=== PATIENT | female | born 1980 | race Caucasian/White ===

== ENCOUNTER 2021-05-27 00:50 | Observation (INO) | payer BC ==
[2021-05-27] MEDS ORDERED: BUTALB/ACETAMINOPHEN/CAFFEINE TAB PO ONE (01:24)
[2021-05-27] MEDS ORDERED: ONDANSETRON 4 MG/2 ML INJ IV ONE (01:25)
[2021-05-27 01:33] LABS: Hematocrit 44.2 % (30.3-42.9); Mean Corpuscular HGB Conc 34 % (30-34); Mean Corpuscular Volume 85 fl (79-97); Platelet Count 231 K/mm3 (140-440); Red Blood Count 5.21 M/mm3 (3.65-5.03); Red Cell Distribution Width 13.6 % (13.2-15.2)
[2021-05-27 01:43] LABS: INR 0.9 (0.87-1.13)
--- NOTE | 2021-05-27 01:44 | Emergency Department Report ---
HPI - General Time Seen by Provider: 05/27/21 01:09 - [facility] HPI: Room 24 The patient is a 40-year-old female present with a chief complaint of headache. The patient states she has had an intermittent frontal headache for the past 2 weeks this morning the patient had episode of nausea vomiting then tonight developed some shortness of breath prompted her to come to the emergency department. Patient states she went to her primary physician 5 days ago and had blood work done. The patient states she was told her glucose and cholesterol is elevated and she was given ibuprofen for her headache. Patient denies any preceding trauma, history of cough or fever. Patient denies chest pain. The patient states she has been vaccinated against Covid receiving her second Pfizer vaccine approximately 2 months ago ED Past Medical Hx - Past Medical History Previous Medical History?: No - Surgical History Past Surgical History?: No - Family History Family history: no significant - Social History Smoking Status: Never Smoker Substance Use Type: None ED Review of Systems ROS: Stated complaint: SOB HEADACHE VOMITING Other details as noted in HPI Constitutional: denies: fever Eyes: denies: eye pain ENT: denies: throat pain Respiratory: shortness of breath. denies: cough Cardiovascular: denies: chest pain Endocrine: no symptoms reported Gastrointestinal: nausea, vomiting Genitourinary: denies: dysuria Musculoskeletal: denies: back pain Neurological: headache Physical Exam - Physical Exam Physical Exam: GENERAL: The patient is well-developed well-nourished female lying on stretcher appearing to be in moderate discomfort. [] HEENT: Normocephalic. Atraumatic. Extraocular motions are intact. Patient has moist mucous membranes. NECK: Supple. No meningitic signs are noted. There is no nuchal rigidity CHEST/LUNGS: Clear to auscultation. There is no respiratory distress noted. HEART/CARDIOVASCULAR: Regular. There is no tachycardia. There is no gallop rub or murmur. ABDOMEN: Abdomen is soft, nontender. Patient has normal bowel sounds. There is no abdominal distention. SKIN: There is no rash. There is no edema. There is no diaphoresis. NEURO: The patient is awake, alert, and oriented. The patient is cooperative. The patient has no focal neurologic deficits. The patient has normal speech. Cranial nerves II through XII grossly intact. GCS 15 MUSCULOSKELETAL: There is no evidence of acute injury. - Lumbar Puncture Consent Obtained: verbal consent Time Out Performed: Yes Indication for Procedure: headache Patient Position: Sitting Upright/Leaning F Skin Prep: Povidone-Iodine 1% Local Anesthetic Used: Lidocaine 1% Amount of anesthesia used (mls): 5 Spinal Needle Gauge: 20G Spinal Needle Length: 3.5in Interspace Used: L4-L5 Fluid Initially Obtained: clear Complications: none Patient Tolerated Procedure: well, no complications ED Medical Decision Making - Lab Data Result diagrams: 05/27/21 01:15 05/27/21 01:15 Laboratory Tests 05/27/21 05/27/21 05/27/21 01:11 01:15 01:15 WBC 25.1 H RBC 5.21 H Hgb 15.0 H Hct 44.2 H MCV 85 MCH 29 MCHC 34 RDW 13.6 Plt Count 231 Add Manual Diff Complete Total Counted 100 Seg Neuts % (Manual) 76.0 H Lymphocytes % (Manual) 23.0 Eosinophils % (Manual) 1.0 Nucleated RBC % Not Reportable Seg Neutrophils # Man 19.1 H Band Neutrophils # 0.0 Lymphocytes # (Manual) 5.8 H Abs React Lymphs (Man) 0.0 Monocytes # (Manual) 0.0 Eosinophils # (Manual) 0.3 Basophils # (Manual) 0.0 Metamyelocytes # 0.0 Myelocytes # 0.0 Promyelocytes # 0.0 Blast Cells # 0.0 WBC Morphology Not Reportable Hypersegmented Neuts Not Reportable Hyposegmented Neuts Not Reportable Hypogranular Neuts Not Reportable Smudge Cells Not Reportable Toxic Granulation Not Reportable Toxic Vacuolation Not Reportable Dohle Bodies Not Reportable Pelger-Huet Anomaly Not Reportable Sanjeev Rods Not Reportable Platelet Estimate Consistent w auto Clumped Platelets Not Reportable Plt Clumps, EDTA Not Reportable Large Platelets Not Reportable Giant Platelets Not Reportable Platelet Satelliting Not Reportable Plt Morphology Comment Not Reportable RBC Morphology Normal Dimorphic RBCs Not Reportable Polychromasia Not Reportable Hypochromasia Not Reportable Poikilocytosis Not Reportable Anisocytosis Not Reportable Microcytosis Not Reportable Macrocytosis Not Reportable Spherocytes Not Reportable Pappenheimer Bodies Not Reportable Sickle Cells Not Reportable Target Cells Not Reportable Tear Drop Cells Not Reportable Ovalocytes Not Reportable Helmet Cells Not Reportable [place] Bodies Not Reportable [place] Rings Not Reportable Lanie Cells Not Reportable Bite Cells Not Reportable Crenated Cell Not Reportable Elliptocytes Not Reportable Acanthocytes (Spur) Not Reportable Rouleaux Not Reportable Hemoglobin C Crystals Not Reportable Schistocytes Not Reportable Malaria parasites Not Reportable Rober Bodies Not Reportable Hem Pathologist Commnt No PT 12.8 INR 0.90 Sodium Potassium Chloride Carbon Dioxide Anion Gap BUN Creatinine Estimated GFR BUN/Creatinine Ratio Glucose POC Glucose 164 H Calcium Total Bilirubin AST ALT Alkaline Phosphatase Total Creatine Kinase CK-MB (CK-2) CK-MB (CK-2) Rel Index Troponin T NT-Pro-B Natriuret Pep Total Protein Albumin Albumin/Globulin Ratio Lipase Urine Color Urine Turbidity Urine pH Ur Specific [place] Urine Protein Urine Glucose (UA) Urine Ketones Urine Blood Urine Nitrite Urine Bilirubin Urine Ictotest Urine Urobilinogen Ur Leukocyte Esterase Urine WBC (Auto) Urine RBC (Auto) U Epithel Cells (Auto) Urine Mucus CSF Appearance CSF Color CSF WBC CSF RBC CSF Glucose CSF Total Protein 05/27/21 05/27/21 05/27/21 01:15 02:34 03:38 WBC RBC Hgb Hct MCV MCH MCHC RDW Plt Count Add Manual Diff Total Counted Seg Neuts % (Manual) Lymphocytes % (Manual) Eosinophils % (Manual) Nucleated RBC % Seg Neutrophils # Man Band Neutrophils # Lymphocytes # (Manual) Abs React Lymphs (Man) Monocytes # (Manual) Eosinophils # (Manual) Basophils # (Manual) Metamyelocytes # Myelocytes # Promyelocytes # Blast Cells # WBC Morphology Hypersegmented Neuts Hyposegmented Neuts Hypogranular Neuts Smudge Cells Toxic Granulation Toxic Vacuolation Dohle Bodies Pelger-Huet Anomaly Sanjeev Rods Platelet Estimate Clumped Platelets Plt Clumps, EDTA Large Platelets Giant Platelets Platelet Satelliting Plt Morphology Comment RBC Morphology Dimorphic RBCs Polychromasia Hypochromasia Poikilocytosis Anisocytosis Microcytosis Macrocytosis Spherocytes Pappenheimer Bodies Sickle Cells Target Cells Tear Drop Cells Ovalocytes Helmet Cells [place] Bodies [place] Coin Cells Bite Cells Crenated Cell Elliptocytes Acanthocytes (Spur) Rouleaux Hemoglobin C Crystals Schistocytes Malaria parasites Rober Bodies Hem Pathologist Commnt PT INR Sodium 137 Potassium 4.2 Chloride 100.8 Carbon Dioxide 21 L Anion Gap 19 BUN 17 Creatinine 0.9 Estimated GFR > 60 BUN/Creatinine Ratio 19 Glucose 169 H POC Glucose Calcium 9.7 Total Bilirubin 0.40 AST 29 ALT 41 Alkaline Phosphatase 63 Total Creatine Kinase 79 CK-MB (CK-2) 1.3 CK-MB (CK-2) Rel Index 1.6 Troponin T < 0.010 NT-Pro-B Natriuret Pep 77.34 Total Protein 6.9 Albumin 4.0 Albumin/Globulin Ratio 1.4 Lipase 34 Urine Color Helen Urine Turbidity Cloudy Urine pH 5.0 Ur Specific [place] 1.020 Urine Protein >500 Urine Glucose (UA) 150 Urine Ketones Neg Urine Blood Neg Urine Nitrite Neg Urine Bilirubin Sm Urine Ictotest Negative Urine Urobilinogen 2.0 Ur Leukocyte Esterase Neg Urine WBC (Auto) 11.0 H Urine RBC (Auto) 3.0 U Epithel Cells (Auto) 9.0 Urine Mucus 3+ CSF Appearance Clear CSF Color Colorless CSF WBC 3.3 CSF RBC 146.3 CSF Glucose 69 CSF Total Protein 34 05/27/21 03:38 WBC RBC Hgb Hct MCV MCH MCHC RDW Plt Count Add Manual Diff Total Counted Seg Neuts % (Manual) Lymphocytes % (Manual) Eosinophils % (Manual) Nucleated RBC % Seg Neutrophils # Man Band Neutrophils # Lymphocytes # (Manual) Abs React Lymphs (Man) Monocytes # (Manual) Eosinophils # (Manual) Basophils # (Manual) Metamyelocytes # Myelocytes # Promyelocytes # Blast Cells # WBC Morphology Hypersegmented Neuts Hyposegmented Neuts Hypogranular Neuts Smudge Cells Toxic Granulation Toxic Vacuolation Dohle Bodies Pelger-Huet Anomaly Sanjeev Rods Platelet Estimate Clumped Platelets Plt Clumps, EDTA Large Platelets Giant Platelets Platelet Satelliting Plt Morphology Comment RBC Morphology Dimorphic RBCs Polychromasia Hypochromasia Poikilocytosis Anisocytosis Microcytosis Macrocytosis Spherocytes Pappenheimer Bodies Sickle Cells Target Cells Tear Drop Cells Ovalocytes Helmet Cells [place] Bodies [place] Coin Cells Bite Cells Crenated Cell Elliptocytes Acanthocytes (Spur) Rouleaux Hemoglobin C Crystals Schistocytes Malaria parasites Rober Bodies Hem Pathologist Commnt PT INR Sodium Potassium Chloride Carbon Dioxide Anion Gap BUN Creatinine Estimated GFR BUN/Creatinine Ratio Glucose POC Glucose Calcium Total Bilirubin AST ALT Alkaline Phosphatase Total Creatine Kinase CK-MB (CK-2) CK-MB (CK-2) Rel Index Troponin T NT-Pro-B Natriuret Pep Total Protein Albumin Albumin/Globulin Ratio Lipase Urine Color Urine Turbidity Urine pH Ur Specific [place] Urine Protein Urine Glucose (UA) Urine Ketones Urine Blood Urine Nitrite Urine Bilirubin Urine Ictotest Urine Urobilinogen Ur Leukocyte Esterase Urine WBC (Auto) Urine RBC (Auto) U Epithel Cells (Auto) Urine Mucus CSF Appearance Clear CSF Color Colorless CSF WBC 1.1 CSF RBC 30.8 CSF Glucose CSF Total Protein - EKG Data -: EKG Interpreted by Me EKG shows normal: sinus rhythm Rate: normal - EKG Data When compared to previous EKG there are: previous EKG unavailable Interpretation: nonspecific ST-T wave mattie (T wave inversion lead V2) - Radiology Data Radiology results: report reviewed (CT head, chest x-ray), image reviewed (CT head, chest x-ray) interpreted by me: Chest x-ray-no definite focal infiltrates, no pneumothorax [facility] [address] [place] [address] Cat Scan Report Signed Patient: FABRIZIO MORENO MR#: [id number] : 1980 Acct:[id number] Age/Sex: 40 / F ADM Date: 05/27/21 Loc: ED Attending Dr: Ordering Physician: MIKE HA MD Date of Service: 05/27/21 Procedure(s): CT head/brain wo con Accession Number(s): [id number] cc: MIKE HA MD CT HEAD WITHOUT CONTRAST INDICATION / CLINICAL INFORMATION: Patient complains of a headache. TECHNIQUE: All CT scans at this location are performed using CT dose reduction for ALARA by means of automated exposure control. COMPARISON: None available. FINDINGS: HEMORRHAGE: None. EXTRA-AXIAL SPACES: Normal in size and morphology for the patient's age. VENTRICULAR SYSTEM: Normal in size and morphology for the patient's age. CEREBRAL PARENCHYMA: No significant abnormality. No acute territorial infarct. MIDLINE SHIFT OR HERNIATION: None. CEREBELLUM / BRAINSTEM: No significant abnormality. ORBITS: Normal as visualized. SOFT TISSUES of HEAD: No significant abnormality. CALVARIUM: No significant abnormality. PARANASAL SINUSES / MASTOID AIR CELLS: Normal as visualized. ADDITIONAL FINDINGS: None. IMPRESSION: 1. No acute intracranial abnormality. Signer Name: Michael Patterson MD Signed: 05/27/2021 2:09 AM Workstation Name: [id number] Transcribed By: TL Dictated By: Michael Patterson MD Electronically Authenticated By: Michael Patterson MD Signed Date/Time: 05/27/21208 DD/ 7 TD/TT: Print Cancel [facility] [address] [place] [address] XRay Report Signed Patient: FABRIZIO MORENO MR#: [id number] : 1980 Acct:[id number] Age/Sex: 40 / F ADM Date: 05/27/21 Loc: ED Attending Dr: Ordering Physician: MIKE HA MD Date of Service: 05/27/21 Procedure(s): XR chest 1V ap Accession Number(s): [id number] cc: MIKE HA MD Fluoro Time In Minutes: CHEST 1 VIEW 05/27/2021 1:51 AM INDICATION / CLINICAL INFORMATION: Shortness of breath. COMPARISON: None available. FINDINGS: SUPPORT DEVICES: None . HEART / MEDIASTINUM: No significant abnormality. LUNGS / PLEURA: No significant pulmonary or pleural abnormality. No pneumothorax. ADDITIONAL FINDINGS: No significant additional findings. IMPRESSION: 1. No acute findings. Signer Name: Michael Patterson MD Signed: 05/27/2021 2:09 AM Workstation Name: [id number] Transcribed By: TL Dictated By: Michael Patterson MD Electronically Authenticated By: Michael Patterson MD Signed Date/Time: 05/27/21208 DD/ 8 TD/TT: Print Cancel - Differential Diagnosis ICH, intracranial mass, meningitis, URI, Critical care attestation.: If time is entered above; I have spent that time in minutes in the direct care of this critically ill patient, excluding procedure time. ED Disposition Clinical Impression: Headache, Leukocytosis, Orthostasis Disposition: ADMITTED INPATIENT Is pt being admited?: Yes Does the pt Need Aspirin: No Condition: Fair Referrals: PRIMARY CARE, [Primary Care Provider] - 3-5 Days Time of Disposition: 06:00 (Hospitalist called (Dr Herrera))
[2021-05-27 01:57] LABS: Creatine Kinase MB 1.3 ng/mL (0.0-4.0)
[2021-05-27 01:58] LABS: Alanine Aminotransferase 41 units/L (7-56); BUN/Creatinine Ratio 19; Blood Urea Nitrogen 17 mg/dL (7-17); Calcium 9.7 mg/dL (8.4-10.2); Hemolysis Index 8
--- NOTE | 2021-05-27 02:13 | Cat Scan Report ---
CT HEAD WITHOUT CONTRAST INDICATION / CLINICAL INFORMATION: Patient complains of a headache. TECHNIQUE: All CT scans at this location are performed using CT dose reduction for ALARA by means of automated e xposure control. COMPARISON: None available. FINDINGS: HEMORRHAGE: None. EXTRA-AXIAL SPACES: Normal in size and morphology for the patient's age. VENTRICULAR SYSTEM: Normal in size and morphology for the patient's age. CEREBRAL PARENCHYMA: No significant abnormality. No acute territorial infarct. MIDLINE SHIFT OR HERNIATION: None. CEREBELLUM / BRAINSTEM: No significant abnormality. ORBITS: Normal as visualized. SOFT TISSUES of HEAD: No significant abnormality. CALVARIUM: No significant abnormality. PARANASAL SINUSES / MASTOID AIR CELLS: Normal as visualized. ADDITIONAL FINDINGS: None. IMPRESSION: 1. No acute intracranial abnormality. Signer Name: Michael Patterson MD Signed: 05/27/2021 2:09 AM Workstation Name: [id number]
--- NOTE | 2021-05-27 02:14 | XRay Report ---
CHEST 1 VIEW 05/27/2021 1:51 AM INDICATION / CLINICAL INFORMATION: Shortness of breath. COMPARISON: None available. FINDINGS: SUPPORT DEVICES: None. HEART / MEDIASTINUM: No significant abnormality. LUNGS / PLEURA: No significant pulmonary or pleural abnormality. No pneumothorax. ADDITIONAL FINDINGS: No significant additional findings. IMPRESSION: 1. No acute findings. Signer Name: Michael Patterson MD Signed: 05/27/2021 2:09 AM Workstation Name: [id number]
[2021-05-27 03:09] LABS: Bilirubin,Urine SM (Negative); Blood,Urine NEG (Negative); Color,Urine Amber (Yellow); Mucus,Urine 3+ /HPF
[2021-05-27 03:10] LABS: Protein,Urine >500 mg/dL (Negative)
[2021-05-27 03:13] LABS: Ictotest,Urine Negative (Negative)
[2021-05-27 03:56] LABS: Platelet Estimate Consistent w Auto; RBC Morphology Normal; Total Cells Counted 100
[2021-05-27 04:06] LABS: Appearance,CSF Clear
[2021-05-27 04:07] LABS: Glucose,CSF 69 mg/dL
[2021-05-27 04:48] LABS: Red Blood Cell,CSF 30.8 /mm3 (0-0); White Blood Cell,CSF 1.1 /mm3 (1-10)
[2021-05-27 04:49] LABS: Appearance,CSF Clear
[2021-05-27 04:50] LABS: Red Blood Cell,CSF 146.3 /mm3 (0-0); White Blood Cell,CSF 3.3 /mm3 (1-10)
[2021-05-27] MEDS ORDERED: SODIUM CHLORIDE 0.9% 1000 ML 1,000 ML IV ONE ×2 (05:42)
[2021-05-27] MEDS: HEPARIN 5,000 UNIT/1 ML VIAL SUB-Q SCH ×3 (07:00→21:35)
[2021-05-27 07:02] LABS: Total Cells Counted 13 /mm3
[2021-05-27 07:22] LABS: Total Cells Counted 100 /mm3
--- NOTE | 2021-05-27 10:44 | Electrocardiograph Report ---
[facility] Test Date: 2021-05-27 Test Time: 01:15:50 Pat Name: FABRIZIO MORENO Department: Room: [place] [address] Gender: F Doctor Chiropractic: KALI : 1980 Requested By: MIKE HA Order Number: [id number] Reading MD: Chase Cantor Measurements Intervals [employer] Rate: 65 P: 10 AK: 167 QRS: 32 QRSD: 89 T: 30 QT: 430 QTc: 448 Interpretive Statements Sinus rhythm [id number] No previous ECG available for comparison Electronically Signed On 05-27-2021 10:44:28 EDT by Chase Cantor
--- NOTE | 2021-05-27 10:54 | History and Physical Report ---
History of Present Illness Date of examination: 05/27/21 Date of admission: 05/27/21 06:02 Chief complaint: headache History of present illness: The patient is a 40-year-old female without any underlying past medical history present to hospital with a chief complaint of headache. The patient states she has had an intermittent frontal headache for the past 2 weeks. She went to her primary care physician office and was told her blood glucose and cholesterol level was elevated. She also developed episode of nausea vomiting, some shortness of breath prompted her to come to the emergency department. The patient states she has been vaccinated against Covid receiving her second Pfizer vaccine approximately 2 months ago. In the ER CT head showed no acute process, patient also noted to have elevated white count and + protein in the urine. Patient was suspected for COVID-19 infection and admitted for further evaluation and management. - Past Medical History Previous Medical History?: No - Surgical History Past Surgical History?: No - Family History Family history: no significant - Social History Smoking Status: Never Smoker Substance Use Type: None Review of Systems Constitutional: denies: fever Eyes: denies: eye pain ENT: denies: throat pain Respiratory: shortness of breath. denies: cough Cardiovascular: denies: chest pain Endocrine: no symptoms reported Gastrointestinal: + nausea, vomiting Genitourinary: denies: dysuria Musculoskeletal: denies: back pain Neurological: headache Medications and Allergies Allergies Allergy/AdvReac Type Severity Reaction Status Date / Time Penicillins AdvReac Shortness Verified 05/27/21 08:26 of Breath and rash Home Medications Medication Instructions Recorded Confirmed Last Taken Type Etonogestrel/Ethinyl Estradiol 1 each VG Q28D 05/27/21 05/27/21 Unknown History [Nuvaring Vaginal Ring] Omeprazole 20 mg PO QDAY 05/27/21 05/27/21 05/26/21 History Exam - Physical Exam Narrative exam: GENERAL: well-developed and well-nourished obese female lying on bed appeared to be in no discomfort. HEENT: Normocephalic. Atraumatic. No conjunctival congestion or icterus. Patient has moist mucous membranes. NECK: Supple. Trachea midline. CHEST/LUNGS: Clear to auscultated bilaterally, breathing nonlabored. No wheezes crackles or rhonchi. HEART/CARDIOVASCULAR: Regular in rate and rhythm. S1 and S2 positive. ABDOMEN: Abdomen is soft, nontender. Patient has normal bowel sounds. SKIN: There is no rash. Warm and dry. NEURO: No focal motor deficit. Follows command. MUSCULOSKELETAL: No joint effusion or tenderness. EXTRIMITY: No edema, no cyanosis or clubbing. PSYCH: Cooperative. - Constitutional Vitals: Temp Pulse Resp BP Pulse Ox 98.7 F 69 20 112/68 98 05/27/21 00:51 05/27/21 05:02 05/27/21 02:30 05/27/21 07:31 05/27/21 07:31 HEART Score - HEART Score Troponin: Troponin T < 0.010 ng/mL (0.00-0.029) 05/27/21 01:15 Results - Labs CBC & Chem 7: 05/28/21 14:00 05/28/21 05:10 Labs: Abnormal lab results 05/27/21 05/27/21 05/27/21 Range/Units 01:11 01:15 01:15 WBC 25.1 H (4.5-11.0) K/mm3 RBC 5.21 H (3.65-5.03) M/mm3 Hgb 15.0 H (10.1-14.3) gm/dl Hct 44.2 H (30.3-42.9) % Seg Neuts % (Manual) 76.0 H (40.0-70.0) % Seg Neutrophils # Man 19.1 H (1.8-7.7) K/mm3 Lymphocytes # (Manual) 5.8 H (1.2-5.4) K/mm3 Carbon Dioxide 21 L (22-30) mmol/L Glucose 169 H (65-100) mg/dL POC Glucose 164 H (70-105) mg/dL Lactic Acid (0.7-2.0) mmol/L Urine WBC (Auto) (0.0-6.0) /HPF 05/27/21 05/27/21 Range/Units 02:34 05:55 WBC (4.5-11.0) K/mm3 RBC (3.65-5.03) M/mm3 Hgb (10.1-14.3) gm/dl Hct (30.3-42.9) % Seg Neuts % (Manual) (40.0-70.0) % Seg Neutrophils # Man (1.8-7.7) K/mm3 Lymphocytes # (Manual) (1.2-5.4) K/mm3 Carbon Dioxide (22-30) mmol/L Glucose (65-100) mg/dL POC Glucose (70-105) mg/dL Lactic Acid 2.30 H* (0.7-2.0) mmol/L Urine WBC (Auto) 11.0 H (0.0-6.0) /HPF - Imaging and Cardiology Chest x-ray: report reviewed CT Scan - head: report reviewed Assessment and Plan Frontal headache Leukocytosis Proteinuria Nausea vomiting COVID-19 PUI --Ad[facility] to [facility] --Order blood culture, placed on empiric antibiotics --Lumbar puncture suggested no CSF infectious etiology --CT head without any acute findings --We will repeat CBC tomorrow morning, will consult ID --As needed antiemetics, advance diet as tolerated --Ordered for Covid test --Monitor fever curve, consult nephrology for proteinuria
[2021-05-27] MEDS ORDERED: ALBUTEROL 8.5 GM MDI INHALATION IH PRN (10:56)
[2021-05-27] MEDS ORDERED: hydrALAZINE 20 MG/1 ML INJ IV PRN (12:00)
[2021-05-27] MEDS ORDERED: ALBUTEROL 2.5 MG/3 ML NEBU IH PRN (12:00)
[2021-05-27] MEDS ORDERED: ACETAMINOPHEN 325 MG TAB PO PRN ×2 (12:00)
--- NOTE | 2021-05-27 12:46 | Consultation ---
History of Present Illness - Reason for Consult Consult date: 05/27/21 - History of Present Illness 40-year-old female presents to the hospital complaining of a headache. This began approximately 2 weeks prior to admission and has not improved over that time. She also complains of shortness of breath, says she came to the hospital. She notes going to her primary care doctor 5 days prior to admission, and was found to have hyperglycemia and hypercholesterolemia. She was given ibuprofen for headache. She otherwise denies any other symptoms. She reports being vaccinated against Covid with [employer]. A lumbar puncture was performed which was not indicative of meningitis. Afebrile with a white count of 25.1. Urinalysis with significant proteinuria but no pyuria. Currently on Levaquin. Blood cultures no growth so far. Imaging personally reviewed: Chest x-ray: No acute findings. Review of Systems: Bold if positive, otherwise negative General: fevers, chills, rigors HEENT: visual disturbance, diplopia, eye pain Respiratory: cough, sputum, hemoptysis, shortness of breath Cardiovascular: chest pain, syncope Gastrointestinal: nausea, vomiting, diarrhea, abdominal pain Genitourinary: dysuria, hematuria, flank pain Musculoskeletal: neck pain, back pain, joint pain, edema Neurologic: headaches, seizures Hematologic: easy bruising or bleeding Endocrine: night sweats, acute weight loss Skin: rash, jaundice, redness Psychiatric: suicidal, homicidal ideation Medications and Allergies Allergies Allergy/AdvReac Type Severity Reaction Status Date / Time Penicillins AdvReac Shortness Verified 05/27/21 08:26 of Breath and rash Home Medications Medication Instructions Recorded Confirmed Last Taken Type Etonogestrel/Ethinyl Estradiol 1 each VG Q28D 05/27/21 05/27/21 Unknown History [Nuvaring Vaginal Ring] Ibuprofen [Motrin 800 MG tab] 1 tab PO QDAY 05/27/21 05/27/21 05/26/21 History Nystatin/Triamcin 1 applic TP BID 05/27/21 05/27/21 05/26/21 History [Nystatin-Triamcinolone Ointm] Omeprazole 20 mg PO QDAY 05/27/21 05/27/21 05/26/21 History Active Meds: Active Medications Acetaminophen (Acetaminophen 325 Mg Tab) 650 mg PO Q4H PRN PRN Reason: Pain MILD(1-3)/Fever >100.5/PETERS Hydrocodone Bitart/Acetaminophen (Hydrocodone/Acetaminophen 5-325 Mg Tab) 2 each PO Q6H PRN PRN Reason: Pain, Moderate (4-6) Albuterol (Albuterol 2.5 Mg/3 Ml Nebu) 2.5 mg IH Q4HRT PRN PRN Reason: Shortness Of Breath/WHEEZING Famotidine (Famotidine 10 Mg Tab) 10 mg PO BID [facility] Heparin Sodium (Porcine) (Heparin 5,000 Unit/1 Ml Vial) 5,000 unit SUB-Q Q8HR [facility] Last Admin: 05/27/21 07:00 Dose: 5,000 unit Documented by: Hydralazine HCl (Hydralazine 20 Mg/1 Ml Inj) 5 mg IV Q30MIN PRN PRN Reason: Hypertension Levofloxacin/Dextrose (Levaquin 750mg/150ml) 750 mg in 150 mls @ 100 mls/hr IV Q24H [facility]; Protocol Physical Examination - Physical Exam Narrative exam: Physical exam deferred to reduce risk of transmission of COVID-19. Please refer to primary team's note. - Constitutional Vitals: Vital Signs Temp Pulse Resp BP Pulse Ox 98.7 F 69 20 112/68 98 05/27/21 00:51 05/27/21 05:02 05/27/21 02:30 05/27/21 07:31 05/27/21 07:31 Temperature -Last 24 Hours Temperature 98.7 F Temperature 98.7 F Results - Labs CBC & Chem 7: 05/27/21 01:15 05/27/21 01:15 Labs: Abnormal lab results 05/27/21 05/27/21 05/27/21 Range/Units 01:11 01:15 01:15 WBC 25.1 H (4.5-11.0) K/mm3 RBC 5.21 H (3.65-5.03) M/mm3 Hgb 15.0 H (10.1-14.3) gm/dl Hct 44.2 H (30.3-42.9) % Seg Neuts % (Manual) 76.0 H (40.0-70.0) % Seg Neutrophils # Man 19.1 H (1.8-7.7) K/mm3 Lymphocytes # (Manual) 5.8 H (1.2-5.4) K/mm3 Carbon Dioxide 21 L (22-30) mmol/L Glucose 169 H (65-100) mg/dL POC Glucose 164 H (70-105) mg/dL Lactic Acid (0.7-2.0) mmol/L Urine WBC (Auto) (0.0-6.0) /HPF 05/27/21 05/27/21 Range/Units 02:34 05:55 WBC (4.5-11.0) K/mm3 RBC (3.65-5.03) M/mm3 Hgb (10.1-14.3) gm/dl Hct (30.3-42.9) % Seg Neuts % (Manual) (40.0-70.0) % Seg Neutrophils # Man (1.8-7.7) K/mm3 Lymphocytes # (Manual) (1.2-5.4) K/mm3 Carbon Dioxide (22-30) mmol/L Glucose (65-100) mg/dL POC Glucose (70-105) mg/dL Lactic Acid 2.30 H* (0.7-2.0) mmol/L Urine WBC (Auto) 11.0 H (0.0-6.0) /HPF Assessment and Plan Cultures: Blood culture no growth so far A/P: 40-year-old female past medical history obesity presented to hospital complaining of headache. #Covid PUI: Given complaints of headache and shortness of breath, recommend Covid. Given vaccination low likelihood that should rule out. #Proteinuria: Recommend nephrology consult. Proteinuria and headache, ?Nephrotic syndrome #Headache: LP without significant WBC, doubt acute CSF infection. #Obesity #Leukocytosis: Unclear etiology. Likely some element of hemoconcentration given elevated hematocrit Recs: -Follow-up blood cultures -Continue Levaquin for now. -Obtain Covid testing. -Consult nephrology given significant proteinuria Thank you for the consult, we will continue to follow. MD [facility] ([facility] O: [phone] F: [phone]
[2021-05-27] MEDS: FAMOTIDINE 10 MG TAB PO SCH (21:34)
[2021-05-28] MEDS: HEPARIN 5,000 UNIT/1 ML VIAL SUB-Q SCH ×3 (06:42→21:32)
[2021-05-28 06:47] LABS: Blood Urea Nitrogen 12 mg/dL (7-17); Calcium 8.9 mg/dL (8.4-10.2); Hemolysis Index 2
[2021-05-28 06:53] LABS: BUN/Creatinine Ratio 20
[2021-05-28] MEDS: FAMOTIDINE 10 MG TAB PO SCH ×2 (10:01→21:32)
--- NOTE | 2021-05-28 12:20 | Consultation ---
History of Present Illness - Reason for Consult Consult date: 05/28/21 other (Proteinuria.) Requesting physician: TAMI LAMAR - History of Present Illness The patient is a 40 YO female with history significant for morbid obesity who presented to [facility] ED 05/27 with a chief complaint of headache. The patient states she has had an intermittent frontal headache for the past 2 weeks. She went to her primary care physician office and was told her blood glucose and cholesterol level was elevated. She also reports nausea, vomiting, some shortness of breath prompted her to come to the emergency department. The patient states she has been vaccinated against Covid. In the ER CT head showed no acute process, patient also noted to have elevated white count and protein in the urine. Patient was suspected for COVID-19 infection and admitted for further evaluation and management. Nephrology was consulted for evaluation of proteinuria. Medications and Allergies Allergies Allergy/AdvReac Type Severity Reaction Status Date / Time Penicillins AdvReac Shortness Verified 05/27/21 08:26 of Breath and rash Home Medications Medication Instructions Recorded Confirmed Last Taken Type Etonogestrel/Ethinyl Estradiol 1 each VG Q28D 05/27/21 05/27/21 Unknown History [Nuvaring Vaginal Ring] Omeprazole 20 mg PO QDAY 05/27/21 05/27/21 05/26/21 History Active Meds: Active Medications Acetaminophen (Acetaminophen 325 Mg Tab) 650 mg PO Q4H PRN PRN Reason: Pain MILD(1-3)/Fever >100.5/PETERS Last Admin: 05/27/21 21:34 Dose: 650 mg Documented by: Hydrocodone Bitart/Acetaminophen (Hydrocodone/Acetaminophen 5-325 Mg Tab) 2 each PO Q6H PRN PRN Reason: Pain, Moderate (4-6) Albuterol (Albuterol 2.5 Mg/3 Ml Nebu) 2.5 mg IH Q4HRT PRN PRN Reason: Shortness Of Breath/WHEEZING Famotidine (Famotidine 10 Mg Tab) 10 mg PO BID [facility] Last Admin: 05/28/21 10:01 Dose: 10 mg Documented by: Heparin Sodium (Porcine) (Heparin 5,000 Unit/1 Ml Vial) 5,000 unit SUB-Q Q8HR [facility] Last Admin: 05/28/21 06:42 Dose: 5,000 unit Documented by: Hydralazine HCl (Hydralazine 20 Mg/1 Ml Inj) 5 mg IV Q30MIN PRN PRN Reason: Hypertension Levofloxacin/Dextrose (Levaquin 750mg/150ml) 750 mg in 150 mls @ 100 mls/hr IV Q24H [facility]; Protocol Last Admin: 05/28/21 10:01 Dose: 100 mls/hr Documented by: Review of Systems All systems: negative Exam - Vital Signs Vital signs: Vital Signs Temp Pulse Resp BP Pulse Ox 98.7 F 72 20 110/64 100 05/27/21 00:51 05/27/21 00:51 05/27/21 00:51 05/27/21 00:51 05/27/21 00:51 Results - Lab Results 05/28/21 14:00 05/28/21 05:10 Most recent lab results Calcium 8.9 mg/dL (8.4-10.2) 05/28/21 05:10 Assessment and Plan 1. Proteinuria: Random urine Pro:Creat 0.42. Likely from combination of DM and morbid obesity. 2. FEN: Monitor lytes and volume status. 3. Frontal headache: CT head and MRI brain are negative. 4. Leukocytosis: Improved. 5. COVID-19 PUI: Negative COVID-19 test. 6. Nausea and vomiting: Improved. Will sign off. F/u with me after d/c. Subjective: Patient was seen and examined at the bedside. Examination: Milk Tanker Driver present General appearance: well-developed, obese, no distress HEENT: atraumatic Eyes: pupils equal Neck: trachea midline Respiratory: ctab Heart: S1S2, no murmur Abdomen: soft, not distended, bowel sounds heard, NT Integumentary: no obvious rash Neurologic: AO, able to move extremities Ext: no edema
--- NOTE | 2021-05-28 12:39 | Magnetic Resonance Report ---
MR MRA/MRV head wo con INDICATION / CLINICAL INFORMATION: 40 years Female; headache with possible venous thrombosis. TECHNIQUE: 3-D evaluation for MR venography of the brain. COMPARISON: None available. 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 The heterogeneous signal at the confluence of the right laird sverse and sigmoid sinuses also appears reflect flow artifact or possibly presence of arachnoid granu lation given the somewhat rounded configuration.. Otherwise I, there is no clear MRV evidence of veno us sinus thrombosis The superior sagittal and straight sinuses-appropriate signal intensity without evidence of thrombosi s at. The internal cerebral veins are also patent. 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 There is no definitive MRV evidence of venous sinus thrombosis. Signer Name: Jamie Alvarez MD Signed: 05/28/2021 12:32 PM Workstation Name: [id number]
[2021-05-28 14:29] LABS: Eosinophils # (Auto) 0.1 K/mm3 (0.0-0.4); Hemoglobin 13.2 gm/dl (10.1-14.3); Lymphocytes # (Auto) 1.7 K/mm3 (1.2-5.4); Lymphocytes % (Auto) 27.1 % (13.4-35.0); Mean Corpuscular HGB Conc 35 % (30-34); Mean Corpuscular Volume 85 fl (79-97); Monocytes # (Auto) 0.5 K/mm3 (0.0-0.8); Monocytes % (Auto) 8.2 % (0.0-7.3); Platelet Count 189 K/mm3 (140-440); Red Cell Distribution Width 13.6 % (13.2-15.2)
[2021-05-28 14:30] LABS: Basophils % (Auto) 0.6 % (0.0-1.8); Hematocrit 37.3 % (30.3-42.9)
[2021-05-28 15:24] LABS: Creatinine,Urine 31.3 mg/dL (0.1-20.0); Protein/Creatinine Ratio,Urine 0.42
--- NOTE | 2021-05-28 17:02 | Progress Note ---
Assessment and Plan Cultures: Blood culture no growth so far Covid PCR: Negative A/P: 40-year-old female past medical history obesity presented to hospital co mplaining of headache. #Covid PUI: Given complaints of headache and shortness of breath, recommend Covid. Given vaccination low likelihood that should rule out. #Proteinuria: Recommend nephrology consult. Proteinuria and headache, ?Nephrotic syndrome #Headache: LP without significant WBC, doubt acute CSF infection. #Obesity #Leukocytosis: Unclear etiology. Likely some element of hemoconcentration given elevated hematocrit Recs: -Follow-up blood cultures -Stop Levaquin Thank you for the consult, we will continue to follow. Teresita Grant MD [facility], [place], [facility] ([facility] O: [phone] F: [phone] Subjective Date of service: 05/28/21 Interval history: Afebrile, normal white count. Cultures all been negative. Imaging personally reviewed: MRI/MRA: No evidence of venous sinus thrombosis. Objective - Exam Narrative Exam: Physical exam deferred to reduce risk of transmission of COVID-19. Please refer to primary team's note. - Constitutional Vitals: Vital Signs Temp Pulse Resp BP Pulse Ox 98.3 F 68 18 115/55 95 05/28/21 13:08 05/28/21 13:08 05/28/21 13:08 05/28/21 13:08 05/28/21 13:08 Temperature -Last 24 Hours Temperature 98.3 F Temperature 98.6 F Temperature 98.3 F Temperature 98.0 F Temperature 99.3 F Temperature 99.2 F Temperature 99.3 F - Labs CBC & Chem 7: 05/28/21 14:00 05/28/21 05:10 Labs: Abnormal lab results 05/28/21 05/28/21 05/28/21 Range/Units 05:10 14:00 Unknown MCHC 35 H (30-34) % [place] % (Auto) 8.2 H (0.0-7.3) % Chloride 89.3 L (98-107) mmol/L Glucose 127 H (65-100) mg/dL Urine Creatinine 31.3 H (0.1-20.0) mg/dL Urine Total Protein 13 H (5-11.8) mg/dL
[2021-05-28] MEDS: HYDROcodone/ACETAMINOPHEN 5-325 MG TAB PO PRN (18:07)
--- NOTE | 2021-05-29 | Progress Note ---
Assessment and Plan Frontal headache -CT head without any acute finding, will order for MRV out any possible central spinal sclerosis --Lumbar puncture suggested no CSF infectious etiology Leukocytosis, likely stress-induced, WBC normalized --Blood culture negative at 24hours monitor clinically COVID-19 PUI, Ruled out with Negative COVID-19 test Proteinuria nephrology consulted, will follow recommendation, Nausea vomiting, antiemetic as needed, advance diet as tolerated DVT prophylaxis with SCD Disposition: We will follow MRV study, neurology consulted will follow recommendation. Discharge pending on neurology clearance Subjective Date of service: 05/28/21 Interval history: Patient seen and examined. Medical records and medication list reviewed. No acute event overnight noted by the RN. Patient denies any chest pain or difficulty breathing. Patient is tolerating diet. Continue to complain of intermittent frontal headache Discussed plan of care at bedside with patient. Objective - Exam Narrative Exam: GENERAL: well-developed and well-nourished obese female lying on bed appeared to be in no discomfort. HEENT: Normocephalic. Atraumatic. No conjunctival congestion or icterus. Patient has moist mucous membranes. NECK: Supple. Trachea midline. CHEST/LUNGS: Clear to auscultated bilaterally, breathing nonlabored. No wheezes crackles or rhonchi. HEART/CARDIOVASCULAR: Regular in rate and rhythm. S1 and S2 positive. ABDOMEN: Abdomen is soft, nontender. Patient has normal bowel sounds. SKIN: There is no rash. Warm and dry. NEURO: No focal motor deficit. Follows command. MUSCULOSKELETAL: No joint effusion or tenderness. EXTRIMITY: No edema, no cyanosis or clubbing. PSYCH: Cooperative. - Constitutional Vitals: Vital Signs - 12hr 05/28/21 05/28/21 05/28/21 13:08 17:30 19:14 Temperature 98.3 F 98.3 F 98.4 F Pulse Rate 68 65 64 Respiratory 18 18 20 Rate Blood Pressure 115/55 133/78 138/69 O2 Sat by Pulse 95 96 94 Oximetry 05/28/21 22:59 Temperature 98.6 F Pulse Rate 56 L Respiratory 18 Rate Blood Pressure 124/78 O2 Sat by Pulse 93 Oximetry - Labs CBC & Chem 7: 05/28/21 14:00 05/28/21 05:10 Labs: Abnormal lab results 05/28/21 05/28/21 05/28/21 Range/Units 05:10 14:00 Unknown MCHC 35 H (30-34) % [place] % (Auto) 8.2 H (0.0-7.3) % Chloride 89.3 L (98-107) mmol/L Glucose 127 H (65-100) mg/dL Urine Creatinine 31.3 H (0.1-20.0) mg/dL Urine Total Protein 13 H (5-11.8) mg/dL HEART Score - HEART Score Troponin: Troponin T < 0.010 ng/mL (0.00-0.029) 05/27/21 01:15
[2021-05-29] MEDS: HEPARIN 5,000 UNIT/1 ML VIAL SUB-Q SCH ×2 (06:05→15:07)
[2021-05-29] MEDS: HYDROcodone/ACETAMINOPHEN 5-325 MG TAB PO PRN ×2 (07:37→15:36)
[2021-05-29] MEDS: FAMOTIDINE 10 MG TAB PO SCH (09:26)
--- NOTE | 2021-05-29 12:51 | Discharge Summary ---
Providers - Providers Date of Admission: 05/27/21 06:02 Date of discharge: 05/29/21 Attending physician: TAMI LAMAR 05/27/21 10:58 Consult to Physician [CONS] Routine Comment: Consulting Provider: PETRONA RENDON Physician Instructions: Reason For Exam: leukocytosis 05/27/21 15:19 Consult to Physician [CONS] Routine Comment: Consulting Provider: CHEYENNE RAE Physician Instructions: Reason For Exam: proteinurea 05/28/21 09:24 Consult to Physician [CONS] Routine Comment: Consulting Provider: BALDEV ARRIETA Physician Instructions: Reason For Exam: frontal headache Primary care physician: TAR POT WORKER Hospitalization Condition: Fair Hospital course: 40-year-old female past medical history obesity presented to hospital complaining of 3 weeks of left frontoparietal headache ranging in intensity from 6 to 10 with nausea, emesis, vertigo, phonosensitivity (no photosensitivity) and now presenting due to associated shortness of breath and diaphoresis. Covid test was negative. Imaging studies with CT head, MRI MRV findings were normal. Neurology was consulted and recommended supportive care. CSF study without significant WBC, doubt acute CHF infection. Patient was also evaluated by ID and recommended discharge with outpatient follow-up. Patient urine study was significant for proteinuria and renal function noted to be normal. Patient was recommended to follow-up with nephrology as outpatient. Disposition: 01 HOME / SELF CARE / HOMELESS Final Discharge Diagnosis (Prints w/discharge instructions): Frontal headache. Leukocytosis. Proteinuria. Nausea vomiting Time spent for discharge: 34 minutes Core Measure Documentation - Palliative Care Palliative Care/ Comfort Measures: Not Applicable - Core Measures Any of the following diagnoses?: none Exam - Physical Exam Narrative exam: GENERAL: well-developed and well-nourished female lying on bed appeared to be in no discomfort. HEENT: Normocephalic. Atraumatic. No conjunctival congestion or icterus. Patient has moist mucous membranes. NECK: Supple. Trachea midline. CHEST/LUNGS: Clear to auscultated bilaterally, breathing nonlabored. No wheezes crackles or rhonchi. HEART/CARDIOVASCULAR: Regular in rate and rhythm. S1 and S2 positive. ABDOMEN: Abdomen is soft, nontender. Patient has normal bowel sounds. SKIN: There is no rash. Warm and dry. NEURO: No focal motor deficit. Follows command. MUSCULOSKELETAL: No joint effusion or tenderness. EXTRIMITY: No edema, no cyanosis or clubbing. PSYCH: Cooperative. - Constitutional Vitals: Temp Pulse Resp BP Pulse Ox 99 F 53 L 17 115/67 98 05/29/21 07:30 05/29/21 10:00 05/29/21 07:30 05/29/21 07:30 05/29/21 10:00 Plan Activity: advance as tolerated Weight Bearing Status: Weight Bear as Tolerated Diet: low fat, low salt Additional Instructions: Follow-up with nephrology in 1 week for proteinuria Follow up with: CHARLIE TORO MD [Primary Care Provider] - 3-5 Days CHEYENNE RAE MD [Staff Physician] - 7 Days Forms: Discharge Signature Page
--- NOTE | 2021-05-29 14:49 | Consultation ---
History of Present Illness Consult date: 05/29/21 Reason for Consult: Headache Chief complaint: Headache History of present illness: 40 yo female with no significant medical hx presenting with 3 weeks of left frontoparietal headache ranging in intensity from 6 to 10 with nausea, emesis, vertigo, phonosensitivity (no photosensitivity) and now presenting due to associ ated shortness of breath and diaphoresis. Medications and Allergies Allergies Allergy/AdvReac Type Severity Reaction Status Date / Time Penicillins AdvReac Shortness Verified 05/27/21 08:26 of Breath and rash Home Medications Medication Instructions Recorded Confirmed Last Taken Type Etonogestrel/Ethinyl Estradiol 1 each VG Q28D 05/27/21 05/27/21 Unknown History [Nuvaring Vaginal Ring] Omeprazole 20 mg PO QDAY 05/27/21 05/27/21 05/26/21 History Active Meds: Active Medications Acetaminophen (Acetaminophen 325 Mg Tab) 650 mg PO Q4H PRN PRN Reason: Pain MILD(1-3)/Fever >100.5/PETERS Last Admin: 05/27/21 21:34 Dose: 650 mg Documented by: Hydrocodone Bitart/Acetaminophen (Hydrocodone/Acetaminophen 5-325 Mg Tab) 2 each PO Q6H PRN PRN Reason: Pain, Moderate (4-6) Last Admin: 05/29/21 07:37 Dose: 2 each Documented by: Albuterol (Albuterol 2.5 Mg/3 Ml Nebu) 2.5 mg IH Q4HRT PRN PRN Reason: Shortness Of Breath/WHEEZING Famotidine (Famotidine 10 Mg Tab) 10 mg PO BID [facility] Last Admin: 05/29/21 09:26 Dose: 10 mg Documented by: Heparin Sodium (Porcine) (Heparin 5,000 Unit/1 Ml Vial) 5,000 unit SUB-Q Q8HR [facility] Last Admin: 05/29/21 06:05 Dose: 5,000 unit Documented by: Hydralazine HCl (Hydralazine 20 Mg/1 Ml Inj) 5 mg IV Q30MIN PRN PRN Reason: Hypertension Review of Systems All systems: negative Physical Examination - Vital Signs Vital Signs: Vital Signs Temp Pulse Resp BP Pulse Ox 98.7 F 72 20 110/64 100 05/27/21 00:51 05/27/21 00:51 05/27/21 00:51 05/27/21 00:51 05/27/21 00:51 - Physical Exam Narrative exam: Gen: nad, well-nourished; Head: normocephalic; Eyes: no gaze deviation; no ptosis; ENT: normal vocalization; CVS: warm and well-perfused; Pulm: no respiratory distress; GI: appears non-distended, protuberant; Ext: no cyanosis or edema appreciated at distal extremities; Skin: no acute rash or hives appreciated at distal extremities; Heme: no pathologic bruising or ecchymosis appreciated at distal extremities; Neuro: alert, oriented to name, age, month, year, surroundings, no dysarthria, no aphasia, CN 2 - PERRL, visual figueredo grossly intact, CN 3, 4, 6 - EOMI, CN 5 - facial sensation symmetric to light touch, CN 7 - facial movement symmetric, CN 8 - hearing grossly intact, CN 9, 10 - uvula midline, CN 11 - shrug symmetric, CN 12 - tongue midline; Motor - at least 4+/5 in all exts; Sensory - light touch symmetric, Cerebellar - fnf /hts intact, Gait - deferred secondary to fall risk Results - Laboratory Findings CBC and BMP: 05/28/21 14:00 05/28/21 05:10 Abnormal Lab Findings: Abnormal Labs 05/27/21 05/27/21 05/27/21 01:11 01:15 01:15 WBC 25.1 H RBC 5.21 H Hgb 15.0 H Hct 44.2 H MCHC [place] % (Auto) Seg Neuts % (Manual) 76.0 H Seg Neutrophils # Man 19.1 H Lymphocytes # (Manual) 5.8 H D-Dimer Chloride Carbon Dioxide 21 L Glucose 169 H POC Glucose 164 H Lactic Acid C-Reactive Protein Urine WBC (Auto) Urine Creatinine Urine Total Protein 05/27/21 05/27/21 05/27/21 02:34 05:55 13:07 WBC RBC Hgb Hct MCHC [place] % (Auto) Seg Neuts % (Manual) Seg Neutrophils # Man Lymphocytes # (Manual) D-Dimer > 33585 H Chloride Carbon Dioxide Glucose POC Glucose Lactic Acid 2.30 H* C-Reactive Protein Urine WBC (Auto) 11.0 H Urine Creatinine Urine Total Protein 05/27/21 05/28/21 05/28/21 13:07 05:10 14:00 WBC RBC Hgb Hct MCHC 35 H [place] % (Auto) 8.2 H Seg Neuts % (Manual) Seg Neutrophils # Man Lymphocytes # (Manual) D-Dimer Chloride 89.3 L Carbon Dioxide Glucose 127 H POC Glucose Lactic Acid C-Reactive Protein 2.70 H Urine WBC (Auto) Urine Creatinine Urine Total Protein 05/28/21 Unknown WBC RBC Hgb Hct MCHC [place] % (Auto) Seg Neuts % (Manual) Seg Neutrophils # Man Lymphocytes # (Manual) D-Dimer Chloride Carbon Dioxide Glucose POC Glucose Lactic Acid C-Reactive Protein Urine WBC (Auto) Urine Creatinine 31.3 H Urine Total Protein 13 H Assessment and Plan 40 yo female with no significant medical hx presenting with 3 weeks of left frontoparietal headache ranging in intensity from 6 to 10 with nausea, emesis, vertigo, phonosensitivity (no photosensitivity) and now presenting due to associated shortness of breath and diaphoresis. 1. Headache, NOS - conservative treatment with naproxen 500 mg bid prn; tylenol prn; 2. VST - no evidence on MRV Head w/o contrast. 3. Nausea/Emesis - zofran 4 mg prn if no contraindications. 4. Shortness of breath - per primary team. Armand Moore MD Neurology [id number]
--- NOTE | 2021-05-29 15:33 | Progress Note ---
Assessment and Plan Cultures: Blood culture no growth so far Covid PCR: Negative A/P: 40-year-old female past medical history obesity presented to hospital co mplaining of headache. #Covid PUI: Given complaints of headache and shortness of breath, recommend Covid. Given vaccination low likelihood that should rule out. #Proteinuria: Recommend nephrology consult. Proteinuria and headache, ?Nephrotic syndrome #Headache: LP without significant WBC, doubt acute CSF infection. #Obesity #Leukocytosis: Unclear etiology. Likely some element of hemoconcentration given elevated hematocrit Recs: -OK for DC from ID perspective. Thank you for the consult, we will continue to follow. Teresita Grant MD [facility] ([facility]) O: [phone] F: [phone] Subjective Date of service: 05/29/21 Interval history: Afebrile, normal white count. Objective - Exam Narrative Exam: Physical exam deferred to reduce risk of transmission of COVID-19. Please refer to primary team's note. - Constitutional Vitals: Vital Signs Temp Pulse Resp BP Pulse Ox 99 F 53 L 17 115/67 98 05/29/21 07:30 05/29/21 10:00 05/29/21 07:30 05/29/21 07:30 05/29/21 10:00 Temperature -Last 24 Hours Temperature 99 F Temperature 99.4 F Temperature 98.6 F Temperature 98.4 F Temperature 98.3 F - Labs CBC & Chem 7: 05/28/21 14:00 05/28/21 05:10
--- NOTE | 2021-05-29 16:46 | Magnetic Resonance Report ---
MRI BRAIN WITHOUT AND WITH CONTRAST INDICATION / CLINICAL INFORMATION: Atypical Headache. TECHNIQUE: Multiplanar, multisequence MR images of the brain were obtained. COMPARISON: Head CT on 05/27/2021 FINDINGS: BRAIN / INTRACRANIAL CONTENTS: No acute ischemia, acute hemorrhage, mass effect, midline shift, or hy drocephalus. No chronic infarct or significant atrophy. No significant demyelinating changes. No abn ormal enhancement. CRANIOCERVICAL JUNCTION: No significant abnormality. VASCULAR FLOW-VOIDS: No significant abnormality. ORBITS: No significant abnormality of visualized orbits. SINUSES / MASTOIDS: No significant abnormality of visualized sinuses and mastoid air cells. ADDITIONAL FINDINGS: None. IMPRESSION: 1. No acute findings or findings to explain the patient's symptoms. Signer Name: Zane Lujan MD Signed: 05/29/2021 4:41 PM Workstation Name: [id number]
[2021-05-30 00:24] VITALS: BP 124/78
== END 2021-05-29 18:30 | disposition home or self-care (01) ==
LOC: ED 00:50 → 4A 06:02
PROVIDERS: ADMIT Internal Medicine Geriatric Medicine; ATTEND Internal Medicine
DX: I95.1 Orthostatic hypotension (principal); Z20.822 Contact with and (suspected) exposure to COVID-19; R51.9 Headache, unspecified; D72.829 Elevated white blood cell count, unspecified; R80.9 Proteinuria, unspecified; E66.9 Obesity, unspecified; R11.2 Nausea with vomiting, unspecified; Z68.37 Body mass index [BMI] 37.0-37.9, adult
CPT/HCPCS: 36415; 70450; 70544; 70553; 71045; 80048; 80053; 81001; 82140; 82550; 82553; 82570; 82728; 82947; 82962; 83690; 83880; 84145; 84156; 84160; 84300; 84484; 85025; 85379; 85610; 86140; 87040; 87086; 87116; 89051; 93005; 96361; 96365; 96366; 96372; 96375; 99285; A9575; G0378; J1644; J1956; J2405; J7030; U0003; 85007